=== PATIENT | male | born 1945 | race Caucasian/White ===

== ENCOUNTER 2017-02-09 13:06 | Emergency (ER) | payer OTHER, MEDICARE ==
[~2017-02-09] VITALS: Ht 180.3 cm; Wt 113.4 kg
[2017-02-09] MEDS ORDERED: ACET500 (15:23)
[2017-02-09] MEDS ORDERED: water pill (15:23)
== END 2017-02-09 15:30 | disposition home or self-care (01) ==
LOC: ER 13:06
DX: S16.1XXA Strain of muscle, fascia and tendon at neck level, initial encounter (principal); V43.92XA Unspecified car occupant injured in collision with other type car in traffic accident, initial encounter; Z87.891 Personal history of nicotine dependence
CPT/HCPCS: 70450; 72125; 93005; 93010; 99284

== ENCOUNTER 2019-12-06 18:37 | Inpatient (IN) | payer OTHER, MEDICARE ==
[~2019-12-06] VITALS: Ht 177.8 cm; Wt 125.5 kg
[~2019-12-06 18:37] MED LIST: ACET500; water pill
[2019-12-06] MEDS ORDERED: METF500 PO (20:03)
[2019-12-06] MEDS ORDERED: ATOR20 PO (20:04)
[2019-12-06] MEDS ORDERED: OMEP20ER PO (20:04)
[2019-12-06] MEDS ORDERED: POTA10T PO (20:05)
[2019-12-06] MEDS ORDERED: HYDR1TAB94 PO (20:05)
[2019-12-06] MEDS ORDERED: METO25ER PO (20:06)
[2019-12-06] MEDS ORDERED: SPIR25 PO (20:06)
[2019-12-06] MEDS ORDERED: LISI5 PO (20:06)
[2019-12-06] MEDS ORDERED: TIZA4 (20:07)
[2019-12-06] MEDS ORDERED: NAPR500 PO (20:08)
[2019-12-06] MEDS ORDERED: FURO40 PO (20:08)
[2019-12-06] MEDS ORDERED: Aspir 8181 MG PO (20:09)
[2019-12-06] MEDS ORDERED: NERVE RENEW (20:10)
[2019-12-06 22:52] LABS: Albumin, Blood 4.3 g/dL (3.4-5.0); Albumin/Globulin Ratio 1.1 (0.8-1.8); Bilirubin, Total 0.7 mg/dL (0.1-1.0); Bun/Creatinine Ratio 25.2 (12.0-20.0); Creatinine, Blood 1.39 mg/dL (0.60-1.20); Total Protein, Blood 8.3 g/dL (6.4-8.2)
[2019-12-06 23:09] LABS: BASOPHILS ABSOLUTE AUTO 0.02 K/mm3 (0.00-0.23); BASOPHILS PERCENT AUTO 0 % (0-2); EOSINOPHILS ABSOLUTE AUTO 0.01 K/mm3 (0.00-0.68); EOSINOPHILS PERCENT AUTO 0 % (0-6); Hematocrit 41.7 % (37.0-53.0); Hemoglobin 14.6 g/dL (13.5-17.5); IMMATURE GRAN ABSOLUTE AUTO 0.05 K/mm3 (0.00-0.10); IMMATURE GRAN PERCENT AUTO 1 % (0-1); LYMPHOCYTES ABSOLUTE AUTO 1.51 K/mm3 (0.84-5.20); LYMPHOCYTES PERCENT AUTO 15 % (21-46); MONOCYTES ABSOLUTE AUTO 0.39 K/mm3 (0.16-1.47); MONOCYTES PERCENT AUTO 4 % (4-13); Mean Corpuscular HGB 33.9 pg (26.0-34.0); Mean Corpuscular Volume 97 fL (80-100); Mean Platelet Volume 10.2 fL (9.1-12.4); NEUTROPHILS ABSOLUTE AUTO 8.19 K/mm3 (1.96-9.15); NEUTROPHILS PERCENT AUTO 81 % (41-73); Platelet Count 174 K/mm3 (150-400); RDW Coefficient Variation 13.3 % (11.7-14.2); RDW Standard Deviation 46.7 fL (35.1-46.3); Red Blood Cell Count 4.31 M/mm3 (4.30-5.90); White Blood Cell Count 10.17 K/mm3 (4.00-11.30)
[2019-12-06 23:24] LABS: International Normalized Ratio 1.02; Prothrombin Time Results 10.9 Sec (9.7-11.5)
[2019-12-07] MEDS ORDERED: FISH OIL 1,2001 EAC1 PO (03:15)
--- NOTE | 2019-12-07 05:00 | NUR ---
PT ADMITTED TO ICU-4 FROM ER, BY ROSA, WITH HEPARIN INFUSING. PT IS ALERT, PLEASANT CONSIDERING CIRCUMSTANCES, AND COOPERATIVE. HEPARIN DOSING IS RECONFIRMED. PT IS ON RA, VSS, MONITOR SHOWS PACED RHYTHM. RT SET UP CPAP FOR PT, CONTINUING ON RA. PT COMPLAINS OF 10/10 PAIN L LEG, STATES PAIN MEDS HAVE BEEN MOSTLY NOT EFFECTIVE. L LEG IS COOL FROM KNEE TO TOES, PALE, NO PULSES FOUND IN L FOOT. PT STATES HE CAN FEEL PRESSURE ON TOUCH ONLY, GENERALLY JUST NUMBNESS. PT WAS ABLE TO VOID EVA URINE PER URINAL. CALL LIGHT IN REACH.
--- NOTE | 2019-12-07 06:30 | NUR ---
PT MED AGAIN W FENTANYL FOR PAIN, PT STATES RELIEF TO 5/10, WHICH IS TOLERABLE, BUT ONLY SHORT LIVED. NO OTHER CHANGES IN STATUS OR IN L LEG ASSESSMENT. CALL LIGHT CONT IN REACH. WILL INTRODUCE DAY SHIFT AT SHIFT CHANGE.
[2019-12-07 06:33] LABS: BASOPHILS ABSOLUTE AUTO 0.01 K/mm3 (0.00-0.23); BASOPHILS PERCENT AUTO 0 % (0-2); EOSINOPHILS ABSOLUTE AUTO 0.02 K/mm3 (0.00-0.68); EOSINOPHILS PERCENT AUTO 0 % (0-6); Hematocrit 37.7 % (37.0-53.0); Hemoglobin 13.2 g/dL (13.5-17.5); IMMATURE GRAN ABSOLUTE AUTO 0.04 K/mm3 (0.00-0.10); IMMATURE GRAN PERCENT AUTO 0 % (0-1); LYMPHOCYTES PERCENT AUTO 26 % (21-46); MONOCYTES ABSOLUTE AUTO 0.82 K/mm3 (0.16-1.47); MONOCYTES PERCENT AUTO 9 % (4-13); Mean Corpuscular HGB 34.3 pg (26.0-34.0); Mean Corpuscular Volume 98 fL (80-100); Mean Platelet Volume 10.4 fL (9.1-12.4); NEUTROPHILS ABSOLUTE AUTO 6.17 K/mm3 (1.96-9.15); NEUTROPHILS PERCENT AUTO 65 % (41-73); Platelet Count 156 K/mm3 (150-400); RDW Coefficient Variation 13.6 % (11.7-14.2); RDW Standard Deviation 47.9 fL (35.1-46.3); Red Blood Cell Count 3.85 M/mm3 (4.30-5.90); White Blood Cell Count 9.56 K/mm3 (4.00-11.30)
[2019-12-07 06:56] LABS: Alanine Aminotransfer (ALT/SGP 44 U/L (12-78); Albumin, Blood 3.5 g/dL (3.4-5.0); Albumin/Globulin Ratio 1.1 (0.8-1.8); Alk Phos 71 U/L (50-136); Anion Gap 8 mmol/L (6-16); Aspartate Aminotrans (AST/SGOT 27 U/L (12-37); Bilirubin, Total 0.7 mg/dL (0.1-1.0); Blood Urea Nitrogen 33 mg/dL (8-24); Bun/Creatinine Ratio 27.3 (12.0-20.0); CO2, Blood 26 mmol/L (21-32); Calcium, Blood 9.1 mg/dL (8.5-10.1); Chloride, Blood 104 mmol/L (98-108); Creatinine, Blood 1.21 mg/dL (0.60-1.20); Globulin, Blood 3.3 g/dL (2.2-4.0); Glomerular Filtration Rate >60 (60-); Glucose, Blood 186 mg/dL (70-99); Potassium, Blood 4.1 mmol/L (3.5-5.5); Sodium, Blood 138 mmol/L (136-145); Total Protein, Blood 6.8 g/dL (6.4-8.2)
--- NOTE | 2019-12-07 08:20 | NUR ---
ASSUMED CARE: REPORT RECEIVED FROM SCOTTIE Sandy RN. ASSUMED CARE OF THIS PT AT APPROX 0700. ON ASSESSMENT, THE PT IS AWAKE, A&O. HE HAS CURRENT C/O PAIN, LOCALIZED TO LLE. THE LIMB IS NUMB FROM [place] DOWN & THE PT STS HE CANNOT FEEL TACTILE STIMULUS TO THE LIMB. LIMB IS COLD TO TOUCH FROM KNEE DOWN. PEDAL PULE IS FAINT W/ DOPPLER, POST-TIB PULSE IS NOT PRESENT W/ DOPPLER USE. PT ON RA W/ O2 SATS > 92%. MONITOR SHOWS PACED RHYTHM W/ HR 60-70s, BP STABLE. PT HAS NO CURRENT GI COMPLAINTS, IS NPO R/T IMPENDING CATHLAB PROCEDURE. VOIDS W/O DIFFICULTY USING URINAL. SKIN OVERALL CDI. HC NURSE IN UNIT & STS THAT THIS PT IS NEXT FOR PROCEDURE IN THE [facility]. WILL CONTINUE TO MONITOR & UPDATE NEEDED.
--- NOTE | 2019-12-07 09:30 | NUR ---
DR ZAFAR: PROVIDER HAS BEEN AT BEDSIDE TO EVAL PT. POC HAS BEEN DISCUSSED & CONSENT HAS BEEN SIGNED FOR ANGIOGRAM W/ INTERVENTION.
--- NOTE | 2019-12-07 11:17 | NUR ---
CONFIGURATION ENGINEER: PT OUT OF ROOM W/ CONFIGURATION ENGINEER STAFF AT APPROX 1115.
--- NOTE | 2019-12-07 13:00 | NUR ---
RETURN FROM ENGINEERING TECHNOLOGY INSTRUCTOR: PT BACK TO ROOM ICU-04 AT APPROX 1225. 6FR SHEATH IN PLACE TO R FEMORAL ARTERY, SITE WNL; NO BLEEDING, BRUISING OR HEMATOMA FORMATION NOTED. AREA IS SOFT/ NONTENDER TO PALPATION. PT IS SLEEPING SOUNDLY ON ARRIVAL, CPAP PLACED FOR BRIEF APNEIC PERIODS W/ DESATS TO 86%, IMPROVEMENT NOTED. PLAN IS FOR TPA TO BE STARTED THROUGH FEMORAL SHEATH ONCE ORDERS PLACED BY PROVIDER. HEPARIN DOSING HAS BEEN CHANGED & IS ALSO INFUSING THROUGH ARTERIAL SHEATH ON SECOND PORT. POST-OP VS & CATH SITE MANAGEMENT DOCUMENTED.
--- NOTE | 2019-12-07 16:21 | NUR ---
UPDATE: HC STAFF IN UNIT & HAVE NOTIFIED THIS RN THAT THE PT WILL NOT BE GOING BACK TO THE HC THIS EVENING, BUT INSTEAD WILL RETURN FIRST THING TOMORROW AM. THEY STATE IT IS OKAY FOR THE PT TO EAT DINNER, BUT HE SHOULD BE NPO AFTER MN.
--- NOTE | 2019-12-07 18:43 | NUR ---
SHIFT SUMMARY: NO ACUTE CHANGES SINCE PRIOR UPDATES. PT REMAINS A&O, PLEASANT & COOPERATIVE W/ CARE. HE HAS BEEN REPOSITIONED PRN FOR COMFORT, BUT OVERALL REMAINS LYING SUPINE W/ BED TILTED INTO REVERSE TRENDELENBERG POSITION. ON RA W/ O2 SATS > 95% WHEN AWAKE. CPAP IN USE WHEN SLEEPING. MONITOR SHOWS PACED RHYTHM W/ RATE 60-70s, BP STABLE. PT HAS NO GI COMPLAINTS & HAS TOLERATED PO INTAKE WELL. VOIDING W/O DIFFICULTY USING URINAL AT BEDSIDE. R FEMORAL SITE WNL; SOFT & NONTENDER TO PALPATION. SKIN OVERALL CDI. WILL CONTINUE TO MONITOR & REPORT OFF TO ONCOMING RN.
--- NOTE | 2019-12-07 20:00 | NUR ---
BEDSIDE REPORT, WITH REVIEW OF TPA, HEPARIN & FEMORAL SHEATH SITES. PT IS ALERT AND ABLE TO PARTICIPATE IN CARE, UNDERSTANDS IMPORTANCE OF NOT FLEXING GROIN. PT DENIES PAIN TO LEFT LEG, STATES HAS INCREASED SENSATION, BUT CONT W TINGLING. DP PULSE BY DOPPLER ONLY, FLOW DETECTED, BUT FAINT PULSE. NO PT PULSE. VSS, MONITOR SHOWS PACED RHYTHM. ABLE TO USE URINAL INDEPEND. ON RA, SATS MID 90'S. PT IS WATCHING BASEBALL AND TALKING W SON ON PHONE. CALL LIGHT IN REACH.
[2019-12-08 05:46] LABS: BASOPHILS ABSOLUTE AUTO 0.01 K/mm3 (0.00-0.23); BASOPHILS PERCENT AUTO 0 % (0-2); EOSINOPHILS ABSOLUTE AUTO 0.04 K/mm3 (0.00-0.68); EOSINOPHILS PERCENT AUTO 1 % (0-6); Hematocrit 38.5 % (37.0-53.0); Hemoglobin 13.5 g/dL (13.5-17.5); IMMATURE GRAN ABSOLUTE AUTO 0.02 K/mm3 (0.00-0.10); IMMATURE GRAN PERCENT AUTO 0 % (0-1); LYMPHOCYTES PERCENT AUTO 34 % (21-46); MONOCYTES ABSOLUTE AUTO 0.51 K/mm3 (0.16-1.47); MONOCYTES PERCENT AUTO 9 % (4-13); Mean Corpuscular HGB 34.3 pg (26.0-34.0); Mean Corpuscular HGB Conc 35.1 g/dL (31.5-36.5); Mean Corpuscular Volume 98 fL (80-100); Mean Platelet Volume 10.2 fL (9.1-12.4); NEUTROPHILS ABSOLUTE AUTO 3.16 K/mm3 (1.96-9.15); NEUTROPHILS PERCENT AUTO 56 % (41-73); Platelet Count 126 K/mm3 (150-400); RDW Coefficient Variation 13.5 % (11.7-14.2); RDW Standard Deviation 47.8 fL (35.1-46.3); Red Blood Cell Count 3.94 M/mm3 (4.30-5.90); White Blood Cell Count 5.64 K/mm3 (4.00-11.30)
--- NOTE | 2019-12-08 06:00 | NUR ---
PT STATES SLEPT REASONABLY WELL. CPAP ALL NIGHT, RT ADJUSTED PRESSURES TO PT COMFORT AFTER PT NOTED TO DESAT AT TIMES. VS CONT STABLE AND IN FULLY PACED RHYTHM. R GROIN SITE CONT CLEAR, SOFT, WO BLEEDING. TPA WAS DISCONTINUED PER ORDER AND TRANSDUCER PLACED W PRESSURE BAG. WAVEFORM REMAINS VERY DAMPED DESPITE TROUBLESHOOTING. CATHETER IS LONG, AND EXTRA TUBING TO REACH GROIN. PULSES UNCHANGED. PT WILL GO TO PARQUETRY LAYER THIS AM. NO OTHER CHANGES IN STATUS. CALL LIGHT IN REACH.
[2019-12-08 06:22] LABS: Alanine Aminotransfer (ALT/SGP 55 U/L (12-78); Albumin, Blood 3.4 g/dL (3.4-5.0); Alk Phos 73 U/L (50-136); Anion Gap 6 mmol/L (6-16); Aspartate Aminotrans (AST/SGOT 79 U/L (12-37); Bilirubin, Total 0.9 mg/dL (0.1-1.0); Blood Urea Nitrogen 23 mg/dL (8-24); Bun/Creatinine Ratio 22.3 (12.0-20.0); CO2, Blood 26 mmol/L (21-32); Calcium, Blood 8.8 mg/dL (8.5-10.1); Chloride, Blood 107 mmol/L (98-108); Creatinine, Blood 1.03 mg/dL (0.60-1.20); Globulin, Blood 3.5 g/dL (2.2-4.0); Glomerular Filtration Rate >60 (60-); Glucose, Blood 167 mg/dL (70-99); Magnesium, Blood 2.1 mg/dL (1.6-2.4); Potassium, Blood 4.3 mmol/L (3.5-5.5); Sodium, Blood 139 mmol/L (136-145); Total Protein, Blood 6.9 g/dL (6.4-8.2)
--- NOTE | 2019-12-08 07:21 | NUR ---
ASSUMPTION OF CARE RECEIVED REPORT FROM SCOTTIE LUTHER. ASSUMED CARE OF PATIENT. PATIENT OUT OF ROOM TO SOFTWARE VALIDATION ENGINEER AT 0710.
--- NOTE | 2019-12-08 09:57 | NUR ---
PATIENT ARRIVED TO ROOM FROM CARD CHECKER. SHEATH IN PLACE, TPA AND HEPARIN INFUSING ORDERED. EDUCATED PATIENT REGARDS TO NO BENDING AT WAIST AND KEEPING LEGS STRAIGHT. PATIENT VERBALIZED UNDERSTANDING. CALL LIGHT IN REACH.
--- NOTE | 2019-12-08 12:00 | NUR ---
RE-ASSESSMENT NO ACUTE CHANGES FROM INITIAL ASSESSMENT. VITALS STABLE, RIGHT GROIN SITE SOFT, SHEATH REMAINS SECURED WITH TPA AND HEPARIN INFUSING AT SITE. RIGHT PEDAL PULSE PALPABLE, LEFT PEDAL PULSE DOPPLERED WEAK. PATIENT DENIES DISCOMFORTS. CALL LIGHT IN REACH.
--- NOTE | 2019-12-08 14:00 | NUR ---
GROIN ASSESSMENT RIGHT GROIN WITH SHEATH IN PLACE AND SECURE. TPA AND HEPARIN CONTINUE TO INFUSE TO GROIN SITE ORDERED. GROIN SOFT, RIGHT PEDAL PULSE STRONG AND PALPABLE, LEFT PEDAL PULSE WEAK, THREADY AND PALPABLE. CALL LIGHT IN REACH.
--- NOTE | 2019-12-08 16:00 | NUR ---
RE-ASSESSMENT NO ACUTE CHANGES FROM PREVIOUS ASSESSMENT. VITALS STABLE, RIGHT GROIN SITE SOFT, SHEATH IN PLACE AND SECURE. HEPARIN AND TPA INFUSING AT SHEATH SITE ORDERED. RIGHT PEDAL PULSE REMAINS STRONG AND PALPABLE. LEFT PEDAL PULSE IS WEAK AND DOPPLERED. DENIES NEEDS OR DISCOMFORTS, CALL LIGHT IN REACH.
--- NOTE | 2019-12-08 18:11 | NUR ---
SHIFT SUMMARY PATIENT REMAINS A/O, VITALS STABLE, DENIES DISCOMFORTS OR NEEDS. SHEATH REMAINS TO RIGHT GROIN, SECURED WITH HEPARIN AND TPA INFUSING. PEDAL PULSES UNCHANGED FROM LAST ASSESSMENT. WILL CONTINUE TO MONITOR AND REPORT TO ONCOMING RN.
--- NOTE | 2019-12-08 20:00 | NUR ---
ASSUMPTION OF CARE PT AWAKE IN BED, ORIENTED x4, ON ROOM AIR WITH O2 SATURATIONS>95%, CPAP AT BEDSIDE TO USE WHILE SLEEPING. MONITOR SHOWS PACED RHYTHM WITH FEW PVC'S, BP STABLE. UNABLE TO PALPATE L PEDAL PULSES, DP VERIFIED BY DOPPLER, BLE PINK AND EQUALLY COOL BILAT. R FEMORAL SHEATH IN TACT, INFUSING HEPARIN AND TPA (SEE FLOWSHEET), SITE NONTENDER AND SOFT. PT REPORTS PAIN WITH PALPATION TO POSTERIOR L LEG, PAIN FREE AT REST. DIFFICULTY OBTAINING FIBRENOGEN LAB SAMPLE, PHLEB x2 ATTEMPTED BLOOD DRAW, WILL ATTEMPT LAB DRAW WITH IV PLACEMENT. PT DENIES GI/ ISSUES, ASSISTANCE NEEDED TO USE URINAL. PT UNDERSTANDS NEED TO KEEP BILAT LEGS STRAIGHT WHILE SHEATH IN PLACE. CALL LIGHT WITH IN REACH, PT USING APPROPRIATELY.
--- NOTE | 2019-12-09 03:35 | NUR ---
CALL TO DR ZAFAR, NOTIFIED OF ABSENT DP PULSE BY DOPPLER, NO NEW ORDERS, CONFIRMED GTT RATES PER SHEATH OF TPA @ 1mg/hr AND HEPARIN @ 6ml/hr.
[2019-12-09 04:02] LABS: BASOPHILS ABSOLUTE AUTO 0.01 K/mm3 (0.00-0.23); BASOPHILS PERCENT AUTO 0 % (0-2); EOSINOPHILS PERCENT AUTO 1 % (0-6); Hemoglobin 13.2 g/dL (13.5-17.5); IMMATURE GRAN ABSOLUTE AUTO 0.04 K/mm3 (0.00-0.10); IMMATURE GRAN PERCENT AUTO 1 % (0-1); LYMPHOCYTES ABSOLUTE AUTO 1.81 K/mm3 (0.84-5.20); LYMPHOCYTES PERCENT AUTO 26 % (21-46); MONOCYTES ABSOLUTE AUTO 0.69 K/mm3 (0.16-1.47); MONOCYTES PERCENT AUTO 10 % (4-13); Mean Corpuscular HGB Conc 34.7 g/dL (31.5-36.5); Mean Corpuscular Volume 98 fL (80-100); Mean Platelet Volume 10.2 fL (9.1-12.4); NEUTROPHILS ABSOLUTE AUTO 4.42 K/mm3 (1.96-9.15); NEUTROPHILS PERCENT AUTO 63 % (41-73); Platelet Count 123 K/mm3 (150-400); RDW Coefficient Variation 13.6 % (11.7-14.2); RDW Standard Deviation 47.8 fL (35.1-46.3); Red Blood Cell Count 3.88 M/mm3 (4.30-5.90); White Blood Cell Count 7.07 K/mm3 (4.00-11.30)
[2019-12-09 04:24] LABS: Alanine Aminotransfer (ALT/SGP 53 U/L (12-78); Albumin, Blood 3.5 g/dL (3.4-5.0); Albumin/Globulin Ratio 1.1 (0.8-1.8); Alk Phos 68 U/L (50-136); Anion Gap 4 mmol/L (6-16); Aspartate Aminotrans (AST/SGOT 72 U/L (12-37); Bilirubin, Total 1.4 mg/dL (0.1-1.0); Blood Urea Nitrogen 17 mg/dL (8-24); Bun/Creatinine Ratio 18.3 (12.0-20.0); CO2, Blood 27 mmol/L (21-32); Calcium, Blood 8.9 mg/dL (8.5-10.1); Chloride, Blood 108 mmol/L (98-108); Creatinine, Blood 0.93 mg/dL (0.60-1.20); Globulin, Blood 3.3 g/dL (2.2-4.0); Glomerular Filtration Rate >60 (60-); Glucose, Blood 141 mg/dL (70-99); Potassium, Blood 4.1 mmol/L (3.5-5.5); Sodium, Blood 139 mmol/L (136-145); Total Protein, Blood 6.8 g/dL (6.4-8.2)
--- NOTE | 2019-12-09 05:57 | NUR ---
SHIFT SUMMARY PT RESTED T/O NIGHT, EXPRESSED SOME FRUSTRATION WITH FREQUENT NURSING CARE BUT REMAINED COOPERATIVE T/O SHIFT. PT ON RA AND CPAP FOR SLEEPING, MONITOR SHOWS PACED RHYTHM, BP STABLE, PT AFEBRILE. R FEMORAL SHEATH REMAINS IN PLACE, INFUSING TPA @ 1mg/hr AND HEPARIN AT 6ml/hr, L LOWER LIMB CHANGES THIS SHIFT (SEE PREVIOUS NOTE). PT TOLERATED BEDREST AND KEPT BILAT LEGS STRAIGHT T/O SHIFT, DECLINED TURNS- STS HE IS NOT COMFORTABLE ON EITHER SIDE AND PREFERS SUPINE. PT CONTINUES TO VOID PER URINAL WITH ASSISTANCE, NO BM THIS SHIFT. CALL LIGHT REMAINS WITHIN REACH, USES APPROPRIATELY.
--- NOTE | 2019-12-09 06:58 | NUR ---
ASSUMPTION OF CARE RECEIVED REPORT FROM RENY LUTHER. ASSUMED CARE OF PATIENT.
--- NOTE | 2019-12-09 09:24 | NUR ---
NEW ORDERS CLARIFIED WITH DR ZAFAR REGARDING TPA AND HEPARIN INFUSIONS. NEW ORDERS RECEIVED, WILL TREAT PRESCRIBED.
--- NOTE | 2019-12-09 10:41 | NUR ---
DR ANDRADE ZAFAR TO ROOM TO REMOVE INFUSER FROM SHEATH. ART LINE INITIATED. TPA AND HEPARIN REMOVED FROM SHEATH SITE AT 1015. HEPARIN INIATED TO PIV IN RIGHT HAND AT THAT TIME.
--- NOTE | 2019-12-09 11:15 | NUR ---
MORNING MEDICATIONS PER CHARTED BLOOD PRESSURE, PATIENT'S AM MEDICATIONS HELD. BLOOD PRESSURE IMPROVED CHARTED AND PER ART-LINE. ADMINISTERED AM MEDICATIONS CHARTED.
--- NOTE | 2019-12-09 12:00 | NUR ---
RE-ASSESSMENT NO ACUTE CHANGES FROM INITIAL ASSESSMENT. PATIENT DENIES NEEDS OR DISCOMFORTS. VITALS STABLE, SHEATH TO RIGHT GROIN STABLE AND SECURED. WILL CONTINUE TO MONITOR.
--- NOTE | 2019-12-09 16:00 | NUR ---
RE-ASSESSMENT NO ACUTE CHANGES FROM PREVIOUS ASSESSMENT. SHEATH TO RIGHT GROIN REMAINS SECURED, SITE IS SOFT. PEDAL PULSES PALPABLE TO RIGHT FOOT, LEFT FOOT REMAIN DOPPLERED AND WEAK. PATIENT DENIES NEEDS AND DISCOMFORTS. CALL LIGHT IN REACH.
--- NOTE | 2019-12-09 16:23 | NUR ---
HEPARIN INCREASED HEPARIN TO 16UNITS/KG/HR PER PHARMACY ORDERS.
--- NOTE | 2019-12-09 16:45 | NUR ---
SINGE WINDER PATIENT OUT OF ROOM TO SINGE WINDER.
--- NOTE | 2019-12-09 18:04 | NUR ---
FLOATLIGHT POWDER MIXER PATIENT ARRIVED TO ROOM FROM FLOATLIGHT POWDER MIXER. GROIN SITE SOFT, SHEATH WAS REMOVED IN FLOATLIGHT POWDER MIXER. NO HEPARIN INFUSING. PATIENT A/O, DENIED DISCOMFORTS. PEDAL PULSES TO RIGHT FOOT STRONG AND PALPABLE, LEFT FOOT STRONG BY DOPPLER. WILL CONTINUE TO MONITOR.
--- NOTE | 2019-12-09 18:11 | NUR ---
IV PUMPS DISCONTINUED AND REMOVED IN RN MED SURG. NO I/O TO REPORT.
--- NOTE | 2019-12-09 21:34 | NUR ---
ASSUMPTION OF CARE PT ALERT AND ORIENTEX x4, O2 SATURATIONS> 95% ON RA, MONITOR SHOWS PACED RHYTHM WITH HR 50'S-60'S, BP STABLE. R GROIN SITE SOFT, TENDER TO PALPATION, BILAT PEDAL PULSES FAINT BUT PALPABLE. PT UNDERSTANDS NEED FOR BILAT LOWER EXTREMETIES TO REMAIN STRAIGHT UNTIL APPROX 2200. PT REQUESTING FOOD, TOLERATING PO INTAKE. HEPARIN GTT INITIATED @ 2049, NOTIFIED PHARMACY OF START TIME. PT CONTINENT OF URINE, NEEDS ASSISTANCE WITH URINAL. CALL LIGHT WITHIN REACH, PT USING APPROPRIATELY.
--- NOTE | 2019-12-10 05:56 | NUR ---
SHIFT SUMMARY NO ACUTE CHANGES THIS SHIFT, PT RESTED T/O NIGHT, O2 SATURATIONS>90% ON RA WHILE AWAKE AND CPAP AT NIGHT, MONITOR SHOWS PACED RHYTHM, BP STABLE. R GROIN SITE STABLE, BLE WARM AND PALPABLE PULSES. HEPARIN GTT INFUSING, SEE FLOWSHEET AND MAR FOR TITRATIONS/BOLUS. PT TOLERATING PO INTAKE, USING URINAL AT BEDSIDE INDEPENDENTLY. PT POSITIONS SELF IN BED, CALL LIGHT WITHIN REACH, PT USING APPROPRIATELY.
[2019-12-10] MEDS ORDERED: XARELTO20 MG PO (10:18)
--- NOTE | 2019-12-10 11:52 | NUR ---
DISCHARGE PT'S PULSE IN HIS L FOOT IIS STRONG, FOOT IS PINK AND WARM. R GROIN SITE REMAINS C/D/I, SOFT WITH NO HEMATOMA. PT AMBULATED OUT IN THE LU WITH WALKER AND MINIMAL ASSIST AND SITE REMAINED SOFT. PT GIVEN HIS XARELTO AFTER DR. EUCEDA ORDERED IT, THEN HEPARIN STOPPED AN HOUR LATER PER DR. EUCEDA'S INSTRUCTIONS. DISCHARGE MED REC FAXED TO [facility]. PT GIVEN DC INSTRUCTIONS REGARDING FOLLOW UP APPOINTMENTS, MEDICATION CHANGES, AND ACTIVITY RESTRICTIONS. PT VERBALIZED UNDERSTANDING. LEFT WITH DR. ANDRADE HIRSCH'S GREEN LUMBER GRADER TO MAKE F/U APPT FOR PT. PT DC'D HOME WITH ALL BELONGINGS, INCLUDING HIS CANE, VIA PRIVATE VEHICLE WITH HIS FRIEND.
== END 2019-12-10 11:50 | disposition home or self-care (01) | DRG 271 ==
LOC: ER 18:37 → ICUE 23:15 → ERHOLD 23:15 → ICUE 12-07 01:20
PROVIDERS: Internal Medicine; Physician Assistant; Radiology Diagnostic Radiology; ADMIT Internal Medicine
PROC: 3E05317 Introduction of Other Thrombolytic into Peripheral Artery, Percutaneous Approach (ICD-10-PCS; principal; 2019-12-07)
PROC: B41G1ZZ Fluoroscopy of Left Lower Extremity Arteries using Low Osmolar Contrast (ICD-10-PCS; 2019-12-07)
PROC: 3E02340 Introduction of Influenza Vaccine into Muscle, Percutaneous Approach (ICD-10-PCS; 2019-12-07)
PROC: 04CL3ZZ Extirpation of Matter from Left Femoral Artery, Percutaneous Approach (ICD-10-PCS; 2019-12-08)
PROC: 04CN3ZZ Extirpation of Matter from Left Popliteal Artery, Percutaneous Approach (ICD-10-PCS; 2019-12-08)
PROC: 3E05317 Introduction of Other Thrombolytic into Peripheral Artery, Percutaneous Approach (ICD-10-PCS; 2019-12-08)
PROC: B41G1ZZ Fluoroscopy of Left Lower Extremity Arteries using Low Osmolar Contrast (ICD-10-PCS; 2019-12-08)
PROC: 04CQ3ZZ Extirpation of Matter from Left Anterior Tibial Artery, Percutaneous Approach (ICD-10-PCS; 2019-12-09)
PROC: 04CN3ZZ Extirpation of Matter from Left Popliteal Artery, Percutaneous Approach (ICD-10-PCS; 2019-12-09)
PROC: 04CU3ZZ Extirpation of Matter from Left Peroneal Artery, Percutaneous Approach (ICD-10-PCS; 2019-12-09)
PROC: B41G1ZZ Fluoroscopy of Left Lower Extremity Arteries using Low Osmolar Contrast (ICD-10-PCS; 2019-12-09)
DX: I70.222 Atherosclerosis of native arteries of extremities with rest pain, left leg (principal); I74.3 Embolism and thrombosis of arteries of the lower extremities; I13.0 Hypertensive heart and chronic kidney disease with heart failure and stage 1 through stage 4 chronic kidney disease, or unspecified chronic kidney disease; E11.22 Type 2 diabetes mellitus with diabetic chronic kidney disease; N18.9 Chronic kidney disease, unspecified; I50.9 Heart failure, unspecified; K21.9 Gastro-esophageal reflux disease without esophagitis; E78.5 Hyperlipidemia, unspecified; I25.10 Atherosclerotic heart disease of native coronary artery without angina pectoris; I25.2 Old myocardial infarction; Z23 Encounter for immunization; Z86.718 Personal history of other venous thrombosis and embolism; Z95.1 Presence of aortocoronary bypass graft; Z95.0 Presence of cardiac pacemaker; Z87.891 Personal history of nicotine dependence; Z79.84 Long term (current) use of oral hypoglycemic drugs; Z79.1 Long term (current) use of non-steroidal anti-inflammatories (NSAID); Z79.82 Long term (current) use of aspirin; Z79.891 Long term (current) use of opiate analgesic; Z79.899 Other long term (current) drug therapy
CPT/HCPCS: 36247; 36415; 37184; 37185; 37211; 37213; 37214; 75625; 75716; 75774; 80053; 82947; 83735; 83880; 84443; 85025; 85347; 85384; 85610; 85730; 93005; 93010; 93926; 93971; 94660; 96374; 96376; 99152; 99153; 99285-25; A9270-GY; C1751; C1757; C1760; C1769; C1887; C1894; C8929; G0008; J1170; J1644; J2250; J2997; J3010; J7030; J7040; J7050; Q2038; Q9957; Q9967

== ENCOUNTER 2019-12-16 10:33 | Emergency (ER) | payer OTHER, MEDICARE ==
[~2019-12-16] VITALS: Ht 177.8 cm; Wt 124.7 kg
[~2019-12-16 10:33] MED LIST changes: +ATOR20 PO; +Aspir 8181 MG PO; +FISH OIL 1,2001 EAC1 PO; +FURO40 PO; +HYDR1TAB94 PO; +LISI5 PO; +METF500 PO; +METO25ER PO; +NAPR500 PO; +NERVE RENEW; +OMEP20ER PO; +POTA10T PO; +SPIR25 PO; +TIZA4; +XARELTO20 MG PO
== END 2019-12-16 14:33 | disposition home or self-care (01) ==
LOC: ER 10:33
DX: Z48.01 Encounter for change or removal of surgical wound dressing (principal); I25.10 Atherosclerotic heart disease of native coronary artery without angina pectoris; I25.2 Old myocardial infarction; E11.9 Type 2 diabetes mellitus without complications; E78.5 Hyperlipidemia, unspecified; I50.9 Heart failure, unspecified; K21.9 Gastro-esophageal reflux disease without esophagitis; Z95.0 Presence of cardiac pacemaker; Z95.1 Presence of aortocoronary bypass graft; Z79.84 Long term (current) use of oral hypoglycemic drugs; Z79.899 Other long term (current) drug therapy; Z79.82 Long term (current) use of aspirin; Z79.01 Long term (current) use of anticoagulants; Z86.718 Personal history of other venous thrombosis and embolism
CPT/HCPCS: 76870; 99283-25

== ENCOUNTER 2021-07-12 14:49 | Inpatient (IN) | payer OTHER ==
[~2021-07-12] VITALS: Ht 177.8 cm; Wt 128.4 kg
[~2021-07-12 14:49] MED LIST changes: -ATOR20 PO; -LISI5 PO; -METF500 PO; -POTA10T PO; -SPIR25 PO; -XARELTO20 MG PO
[2021-07-12] MEDS ORDERED: ATOR20 PO (15:09)
[2021-07-12 15:15] LABS: BASOPHILS ABSOLUTE AUTO 0.01 K/mm3 (0.00-0.23); BASOPHILS PERCENT AUTO 0 % (0-2); EOSINOPHILS ABSOLUTE AUTO 0.01 K/mm3 (0.00-0.68); EOSINOPHILS PERCENT AUTO 0 % (0-6); Hematocrit 43.1 % (37.0-53.0); Hemoglobin 15.5 g/dL (13.5-17.5); IMMATURE GRAN ABSOLUTE AUTO 0.04 K/mm3 (0.00-0.10); IMMATURE GRAN PERCENT AUTO 1 % (0-1); LYMPHOCYTES ABSOLUTE AUTO 1.88 K/mm3 (0.84-5.20); LYMPHOCYTES PERCENT AUTO 31 % (21-46); MONOCYTES ABSOLUTE AUTO 0.59 K/mm3 (0.16-1.47); MONOCYTES PERCENT AUTO 10 % (4-13); Mean Corpuscular HGB 35.1 pg (26.0-34.0); Mean Corpuscular Volume 98 fL (80-100); Mean Platelet Volume 10.3 fL (9.1-12.4); NEUTROPHILS ABSOLUTE AUTO 3.52 K/mm3 (1.96-9.15); NEUTROPHILS PERCENT AUTO 58 % (41-73); Platelet Count 142 K/mm3 (150-400); RDW Coefficient Variation 13.3 % (11.7-14.2); RDW Standard Deviation 47.4 fL (35.1-46.3); Red Blood Cell Count 4.42 M/mm3 (4.30-5.90); White Blood Cell Count 6.05 K/mm3 (4.00-11.30)
[2021-07-12 15:30] LABS: Albumin, Blood 3.8 g/dL (3.4-5.0); Bilirubin, Total 0.8 mg/dL (0.1-1.0); Bun/Creatinine Ratio 20.7 (12.0-20.0); Calcium, Blood 9.4 mg/dL (8.5-10.1); Creatinine, Blood 1.21 mg/dL (0.60-1.20); Globulin, Blood 3.7 g/dL (2.2-4.0); Potassium, Blood 4.5 mmol/L (3.5-5.5); Total Protein, Blood 7.5 g/dL (6.4-8.2)
[2021-07-12] MEDS ORDERED: JARDIANCE25 MG PO (15:44)
[2021-07-12] MEDS ORDERED: BRIMONIDINE 0.110 ML BOTHEYES (15:44)
[2021-07-12] MEDS ORDERED: FAMO40 PO (15:45)
[2021-07-12] MEDS ORDERED: FISH OIL 1,2001 EAC7 PO (15:45)
[2021-07-12] MEDS ORDERED: GABA300 PO (15:46)
[2021-07-12] MEDS ORDERED: NOVOLIN N100 UNIT/2 SQ (15:47)
[2021-07-12] MEDS ORDERED: LISI5 PO (16:17)
[2021-07-12] MEDS ORDERED: METF500 PO (16:18)
[2021-07-12] MEDS ORDERED: POTA10T PO (16:18)
[2021-07-12] MEDS ORDERED: Robaxin750 MG PO (16:18)
[2021-07-12] MEDS ORDERED: SPIR25 PO (16:19)
[2021-07-12] MEDS ORDERED: TAMS.4ER PO (16:19)
[2021-07-12] MEDS ORDERED: XARELTO20 MG PO (16:19)
[2021-07-12 16:35] LABS: Anti-Xa UFH, PHA Monitoring 0.63 IU/mL; International Normalized Ratio 1.09; Prothrombin Time Results 11.4 Sec (9.7-11.5)
[2021-07-13 02:07] LABS: BASOPHILS ABSOLUTE AUTO 0.01 K/mm3 (0.00-0.23); BASOPHILS PERCENT AUTO 0 % (0-2); EOSINOPHILS ABSOLUTE AUTO 0.06 K/mm3 (0.00-0.68); EOSINOPHILS PERCENT AUTO 1 % (0-6); Hematocrit 42.2 % (37.0-53.0); Hemoglobin 14.8 g/dL (13.5-17.5); IMMATURE GRAN ABSOLUTE AUTO 0.02 K/mm3 (0.00-0.10); IMMATURE GRAN PERCENT AUTO 0 % (0-1); LYMPHOCYTES PERCENT AUTO 35 % (21-46); MONOCYTES ABSOLUTE AUTO 0.69 K/mm3 (0.16-1.47); MONOCYTES PERCENT AUTO 12 % (4-13); Mean Corpuscular HGB 33.9 pg (26.0-34.0); Mean Corpuscular HGB Conc 35.1 g/dL (31.5-36.5); Mean Corpuscular Volume 97 fL (80-100); Mean Platelet Volume 10.3 fL (9.1-12.4); NEUTROPHILS ABSOLUTE AUTO 3.09 K/mm3 (1.96-9.15); NEUTROPHILS PERCENT AUTO 52 % (41-73); Platelet Count 122 K/mm3 (150-400); RDW Coefficient Variation 13.4 % (11.7-14.2); RDW Standard Deviation 47.6 fL (35.1-46.3); Red Blood Cell Count 4.36 M/mm3 (4.30-5.90); White Blood Cell Count 5.97 K/mm3 (4.00-11.30)
[2021-07-13 02:31] LABS: Albumin, Blood 3.4 g/dL (3.4-5.0); Bilirubin, Total 0.9 mg/dL (0.1-1.0); Bun/Creatinine Ratio 19.1 (12.0-20.0); Creatinine, Blood 1.1 mg/dL (0.60-1.20); Globulin, Blood 3.3 g/dL (2.2-4.0); Potassium, Blood 3.9 mmol/L (3.5-5.5); Total Protein, Blood 6.7 g/dL (6.4-8.2)
--- NOTE | 2021-07-13 05:45 | NUR ---
PT IS A&OX4, SBA TO BR AND IS ABLE TO MAKE NEEDS KNOWN. ASSUMED CARE OF PT AT 1845. PT ARRIVES TO THE ED FOR CHEST PAINM NO COMPLAINTS OF CHEST PAIN THIS SHIFT. PT ON A HEPARIN DRIP, aPTT HAS BEEN THERAPUTIC NO CHANGES TO gtt REQUIRED. PT ON TELE, HAS BEEN NPO SINCE MIDNIGHT. WILL HAVE A CARDIOLOGY CONSULT THIS MORNING. SLEEPS WITH CPAP, ABLE TO SLEEP 6+ HOURS. BS CHECKS Q6. WILL CONTINUE TO MONITOR AND GIVE HANDOFF REPORT TO ONCOMING NURSE.
--- NOTE | 2021-07-13 09:45 | NUR ---
ASSUMED CARE THIS AM PT. ALERT AND ORIENTED, RESTING COMFORTABLY IN BED. REPORTS CHEST PAIN WITH DEEP BREATHING AND COUGH BUT DENIES CHEST PAIN WITH ACTIVITY AND REST. PT VSS THIS AM. PER HEPARIN GTT TURNED OFF. PLANS FOR OBIEE CONSULTANT TODAY. PT REMAINS NPO. COVID SWAB SENT. CALL LIGHT IN REACH.
[2021-07-13 10:21] LABS: Influenza A, PCR NEGATIVE (NEGATIVE); Influenza B, PCR NEGATIVE (NEGATIVE); Resp Syncytial Virus, PCR NEGATIVE (NEGATIVE); SARS-Cov-2 (COVID-19) PCR, MMC NEGATIVE (NEGATIVE)
--- NOTE | 2021-07-13 11:01 | NUR ---
Echocardiogram completed.
--- NOTE | 2021-07-13 13:29 | NUR ---
ROUNDED ON PT. RESTING COMFORTABLY IN BED, AWAITING INDUSTRIAL PROPERTY APPRAISER TIME. PT REMAINS NPO. VSS AT THIS TIME, NO COMPLAINTS. CALL LIGHT IN REACH. LIGHTS TURNED DOWN PER PT REQUEST.
--- NOTE | 2021-07-13 13:52 | NUR ---
PT TO BALLROOM DANCER AT [facility].
--- NOTE | 2021-07-13 16:57 | NUR ---
PT ARRIVES BACK FROM PAPER CUP MACHINE TENDER AT THIS TIME VSS UPON ARRIVAL. TR BAND IN PLACE TO RIGHT WRIST WITH 14ML OF AIR. NO OOZING, OR SWELLING NOTED AT THIS TIME. FINGERS PINK, NO NUMBNESS OR TINGLING NOTED. PT REMAINS DROWSY, UPDATED ON PROCEDURE AND FINDINGS. PT ABLE TO CALL AND UPDATE HIS SON. CALL LIGHT IN REACH.
--- NOTE | 2021-07-13 18:19 | NUR ---
SHIFT SUMMARY. PT. WENT TO CORPORATE ACCOUNT EXECUTIVE TODAY WITH A STENT PLACED IN GRAPH. PT. HAS NO CHEST PAIN UPON ARRIVAL BACK TO PCU. VSS. PT. HAS TR BAND IN PLACE TO RIGHT WRIST. PLANS FOR HEPARIN GTT 6HRS AFTER REMOVAL OF TR BAND. PT. REMAINS ALERT AND ORIENTED, COOPERATIVE WITH CARE. USES URINAL T/O DAY. NADN. FAMILY AT BEDSIDE, PT EDUCATED ON USE OF RIGHT ARM, ARM BOARD IN PLACE FOR REMINDER. CALL LIGHT IN REACH.
--- NOTE | 2021-07-13 23:18 | NUR ---
DEFLATED BAND ON PT PER PROTOCOL. NO BLEEDING NOTED. WILL MONITOR AREA FOR BLEEDING AND REMOVE BAND IN 30 MINUTES STATED IN PROTOCOL.
--- NOTE | 2021-07-14 05:39 | NUR ---
PT IS A&OX4, INDEPENDENT WITH CARES AND IS ABLE TO MAKE NEEDS KNOWN. PT IS DAY 1 POST CATH, HAD TR BAND PLACED AND REMOVED AT 2230. HEPARIN WILL BE RESTARTED 12 HOURS AFTER BAND REMOVAL. VS ARE STABLE, PT RESTS THROUGH THE NIGHT 7+ HOURS. TOLERATING DIET, BLOOD SUGARS ARE <170. ON TELE, V PACED. WILL CONTINUE TO MONITOR PT.
[2021-07-14] MEDS ORDERED: ASPI81CH PO (12:38)
[2021-07-14] MEDS ORDERED: BRIMONIDINE TART5 M2 BOTHEYES (12:41)
[2021-07-14] MEDS ORDERED: CLOP75 PO (12:41)
[2021-07-14] MEDS ORDERED: DORZOLAMIDE 2%10 M1 BOTHEYES (12:42)
[2021-07-14] MEDS ORDERED: INSULIN GL100 UNIT/2 SC (12:44)
[2021-07-14] MEDS ORDERED: METOPROLOL SUCC25 MG PO (12:45)
--- NOTE | 2021-07-14 18:19 | NUR ---
SHIFT SUMMARY Pt A&OX4; calm and cooperative with care. Up in chair for majority of shift. Pt denies pain, chest pain, sob, nausea, dizziness/lightheadedness. Pt reports ble neuropathy. Tele paced, bp stable. Right radial site c/d/i, no bruising, bleeding or hematoma noted. Spo2 >90% on ra, breathign even and unlabored. Called to clarify heparin gtt with Dr Coates this am, new order to restart heparin gtt "now" and run for 10 hr; at approx 1100 Dr Kwong called with new orders to stop heparin now and administer xarelto 3hr after heparin stopped and ok to go home today. Notified Dr Joseph. Pt normally receives medications from [place], but will orange picker prescriptions from [facility]. [facility] only givens of insulin glargine pen in boxes, notified Dr Joseph, ok to order from [facility] and orange picker friday. Pt called back stating xarelto was too expensive at [facility] and will need to orange picker at [facility], states he has it at home as well. Faxed consult to [facility] and medications to [facility]. Educated pt and daughter on discharge instructions, follow up appointments, prescriptions, post angio and angio with pci. Pt left via wheelchair with daughter and granddaughter.
== END 2021-07-14 16:15 | disposition home or self-care (01) | DRG 246 ==
LOC: ER 14:49 → PCU 18:15
PROVIDERS: Emergency Medicine; Internal Medicine Cardiovascular Disease; ADMIT Internal Medicine
PROC: 027034Z Dilation of Coronary Artery, One Artery with Drug-eluting Intraluminal Device, Percutaneous Approach (ICD-10-PCS; principal; 2021-07-13)
PROC: 4A023N7 Measurement of Cardiac Sampling and Pressure, Left Heart, Percutaneous Approach (ICD-10-PCS; 2021-07-13)
PROC: 061 Lower Veins, Bypass (ICD-10-PCS; 2021-07-13)
PROC: 02C03ZZ Extirpation of Matter from Coronary Artery, One Artery, Percutaneous Approach (ICD-10-PCS; 2021-07-13)
DX: T82.867A Thrombosis due to cardiac prosthetic devices, implants and grafts, initial encounter (principal); I21.A9 Other myocardial infarction type; I13.0 Hypertensive heart and chronic kidney disease with heart failure and stage 1 through stage 4 chronic kidney disease, or unspecified chronic kidney disease; N17.9 Acute kidney failure, unspecified; I50.22 Chronic systolic (congestive) heart failure; I48.20 Chronic atrial fibrillation, unspecified; Z68.41 Body mass index [BMI] 40.0-44.9, adult; Z20.822 Contact with and (suspected) exposure to COVID-19; N18.30 Chronic kidney disease, stage 3 unspecified; I25.5 Ischemic cardiomyopathy; I25.10 Atherosclerotic heart disease of native coronary artery without angina pectoris; E78.5 Hyperlipidemia, unspecified; H40.9 Unspecified glaucoma; E11.22 Type 2 diabetes mellitus with diabetic chronic kidney disease; K21.9 Gastro-esophageal reflux disease without esophagitis; N40.0 Benign prostatic hyperplasia without lower urinary tract symptoms; E78.00 Pure hypercholesterolemia, unspecified; I72.9 Aneurysm of unspecified site; E66.9 Obesity, unspecified; E11.51 Type 2 diabetes mellitus with diabetic peripheral angiopathy without gangrene; I25.2 Old myocardial infarction; Z79.4 Long term (current) use of insulin; Z79.84 Long term (current) use of oral hypoglycemic drugs; Z86.718 Personal history of other venous thrombosis and embolism; Z98.890 Other specified postprocedural states; Z90.89 Acquired absence of other organs; Z95.1 Presence of aortocoronary bypass graft; Z95.0 Presence of cardiac pacemaker; Z79.02 Long term (current) use of antithrombotics/antiplatelets; Z79.899 Other long term (current) drug therapy
CPT/HCPCS: 0241U; 36415; 71045; 76937; 80053; 82947; 83880; 84484; 85025; 85347; 85520; 85610; 85730; 93005; 93010; 93455; 94660; 94762; 96374; 99152; 99153; 99285-25; A9270; C1725; C1757; C1769; C1874; C1884; C1887; C1894; C8923; C9113; C9605; J1644; J1815; J2250; J3010; J7030; J7040; Q9957; Q9967

== ENCOUNTER 2023-12-13 15:24 | Emergency (ER) | payer OTHER ==
[~2023-12-13] VITALS: Ht 182.9 cm; Wt 113.4 kg
[~2023-12-13 15:24] MED LIST changes: +ASPI81CH PO; +ATOR20 PO; +BRIMONIDINE 0.110 ML BOTHEYES; +BRIMONIDINE TART5 M2 BOTHEYES; +CELE200 PO; +CLOP75 PO; +DORZOLAMIDE 2%10 M1 BOTHEYES; +FAMO40 PO; +FINA5 PO; +FISH OIL 1,2001 EAC7 PO; +GABA300 PO; +INSULIN GL100 UNIT/2 SC; +JARDIANCE25 MG PO; +LISI5 PO; +METF500 PO; +METOPROLOL SUCC25 MG PO; +NOVOLIN N100 UNIT/2 SQ; +POTA10T PO; +Robaxin750 MG PO; +SPIR25 PO; +TAMS.4ER PO; +THERA-D2000 UNIT PO; +XARELTO20 MG PO; +Zithromax250 MG PO
[2023-12-13 16:02] VITALS: BP 149/75
== END 2023-12-13 17:05 | disposition home or self-care (01) ==
LOC: ER 15:24
DX: S82.401D Unspecified fracture of shaft of right fibula, subsequent encounter for closed fracture with routine healing (principal); X58.XXXD Exposure to other specified factors, subsequent encounter
CPT/HCPCS: 29515; 99282-25

== ENCOUNTER 2024-03-10 08:41 | Emergency (ER) | payer OTHER ==
[~2024-03-10] VITALS: Ht 177.8 cm; Wt 117.9 kg
[2024-03-10 09:30] LABS: BASOPHILS ABSOLUTE AUTO 0.02 K/mm3 (0.00-0.23); BASOPHILS PERCENT AUTO 0 % (0-2); EOSINOPHILS ABSOLUTE AUTO 0.01 K/mm3 (0.00-0.68); EOSINOPHILS PERCENT AUTO 0 % (0-6); Hematocrit 39.1 % (37.0-53.0); Hemoglobin 13.6 g/dL (13.5-17.5); IMMATURE GRAN ABSOLUTE AUTO 0.62 K/mm3 (0.00-0.10); IMMATURE GRAN PERCENT AUTO 12 % (0-1); LYMPHOCYTES ABSOLUTE AUTO 0.82 K/mm3 (0.84-5.20); LYMPHOCYTES PERCENT AUTO 16 % (21-46); MONOCYTES ABSOLUTE AUTO 0.47 K/mm3 (0.16-1.47); MONOCYTES PERCENT AUTO 9 % (4-13); Mean Corpuscular HGB 33.2 pg (26.0-34.0); Mean Corpuscular HGB Conc 34.8 g/dL (31.5-36.5); Mean Corpuscular Volume 95 fL (80-100); Mean Platelet Volume 10.5 fL (9.1-12.4); NEUTROPHILS ABSOLUTE AUTO 3.32 K/mm3 (1.96-9.15); NEUTROPHILS PERCENT AUTO 63 % (41-73); Platelet Count 161 K/mm3 (150-400); RDW Coefficient Variation 14.6 % (11.7-14.2); RDW Standard Deviation 50.3 fL (35.1-46.3); White Blood Cell Count 5.26 K/mm3 (4.00-11.30)
[2024-03-10 09:36] LABS: Base Excess Venous 0.4 mmol/L; Bicarbonate Venous 23.7 mmol/L (24.0-30.0); PCO2 Venous 45.4 mmHg (38-42); pH Blood Venous 7.36 (7.34-7.37)
[2024-03-10 09:49] LABS: Albumin, Blood 3.8 g/dL (3.4-5.0); Albumin/Globulin Ratio 1.1 (0.8-1.8); Bun/Creatinine Ratio 17.2 (12.0-20.0); Creatinine, Blood 1.16 mg/dL (0.60-1.20); Globulin, Blood 3.4 g/dL (2.2-4.0); Total Protein, Blood 7.2 g/dL (6.4-8.2)
[2024-03-10 09:56] LABS: BAND PERCENT MAN 4 % (0-8); BASOPHILS PERCENT MAN 0 % (0-2); EOSINOPHILS PERCENT MAN 0 % (0-6); LYMPHOCYTES ABSOLUTE MAN 0.73 K/mm3 (0.84-5.20); LYMPHOCYTES PERCENT MAN 14 % (21-46); MONOCYTES ABSOLUTE MAN 0.47 K/mm3 (0.16-1.47); MONOCYTES PERCENT MAN 9 % (4-13); MYELOCYTE ABSOLUTE MAN 0.05 K/mm3 (0.00-0.00); MYELOCYTE PERCENT MAN 1 % (0-0); NEUTROPHILS ABSOLUTE MAN 3.99 K/mm3 (1.96-9.15); SEG NEUTROPHILS PERCENT MAN 72 % (41-73); TOTAL CELLS COUNTED 100
[2024-03-10 12:30] VITALS: BP 138/76
[2024-03-10 13:30] LABS: Influenza A, PCR NEGATIVE (NEGATIVE); Influenza B, PCR NEGATIVE (NEGATIVE); Resp Syncytial Virus, PCR NEGATIVE (NEGATIVE); SARS-Cov-2 (COVID-19) PCR, MMC NEGATIVE (NEGATIVE)
== END 2024-03-10 14:20 | disposition home or self-care (01) ==
LOC: ER 08:41
PROVIDERS: Student in an Organized Health Care Education/Training Program
DX: I13.0 Hypertensive heart and chronic kidney disease with heart failure and stage 1 through stage 4 chronic kidney disease, or unspecified chronic kidney disease (principal); I50.20 Unspecified systolic (congestive) heart failure; N18.9 Chronic kidney disease, unspecified; E11.22 Type 2 diabetes mellitus with diabetic chronic kidney disease; I25.2 Old myocardial infarction; I25.10 Atherosclerotic heart disease of native coronary artery without angina pectoris; E78.00 Pure hypercholesterolemia, unspecified; K21.9 Gastro-esophageal reflux disease without esophagitis; I48.91 Unspecified atrial fibrillation; Z79.899 Other long term (current) drug therapy; Z79.84 Long term (current) use of oral hypoglycemic drugs; Z79.4 Long term (current) use of insulin; Z79.01 Long term (current) use of anticoagulants
CPT/HCPCS: 0241U; 71046; 80053; 82803; 83880; 84484; 85025; 93005; 93010; 99285-25